=== PATIENT | female | born 1995 | race Caucasian/White ===

== ENCOUNTER 2017-08-11 00:24 | Emergency (ER) | payer MEDICAID ==
[~2017-08-11] VITALS: Ht 160 cm; Wt 81.0 kg
[2017-08-11 02:35] VITALS: BP 128/77
== END 2017-08-11 04:00 | disposition home or self-care (01) ==
LOC: ER 00:24
DX: T16.2XXA Foreign body in left ear, initial encounter (principal); X58.XXXA Exposure to other specified factors, initial encounter; Y93.89 Activity, other specified; Y92.89 Other specified places as the place of occurrence of the external cause; R03.0 Elevated blood-pressure reading, without diagnosis of hypertension
CPT/HCPCS: 69200; 99284

== ENCOUNTER 2021-09-04 05:15 | Emergency (ER) | payer MEDICAID ==
[~2021-09-04] VITALS: Ht 160 cm; Wt 94.0 kg
[2021-09-04] MEDS ORDERED: ONDANSETRON HCL 4MG/2ML INJ IV STA (05:37)
[2021-09-04] MEDS ORDERED: KETOROLAC 30MG/ML VIAL IV STA (05:37)
[2021-09-04] MEDS ORDERED: SODIUM CHLORIDE 0.9% 1,000 ML IV ONE (05:45)
[2021-09-04 06:21] LABS: CLARITY URINE CLEAR (CLEAR); COLOR URINE YELLOW (YELLOW); KETONES URINE TRACE (NEGATIVE); LEUKOCYTE ESTERASE URINE NEGATIVE (NEGATIVE); NITRITE URINE NEGATIVE (NEGATIVE); OCCULT BLOOD URINE NEGATIVE (NEGATIVE); PROTEIN URINE TRACE (NEGATIVE); SPECIFIC GRAVITY URINE 1.024 (1.005-1.030); UROBILINOGEN URINE 0.2 E.U./dL (0.2-1.0)
[2021-09-04 06:25] LABS: CHLORIDE 102 mEq/L (98-107)
[2021-09-04 06:26] LABS: PROTHROMBIN TIME 10.4 sec (9.6-11.0)
[2021-09-04 06:40] LABS: HCG SCREEN NEGATIVE
[2021-09-04 07:02] LABS: BASOPHILS % 0.2 % (0.0-2.0); EOSINOPHILS % 0.1 % (0.0-5.0); HEMATOCRIT. 39.6 % (36.0-48.0); HEMOGLOBIN. 13.2 g/dL (12.0-16.0); MEAN CORPUSCULAR HEMOGLOBIN 28.1 pg (28.0-32.0); MEAN CORPUSCULAR VOLUME 84.3 fL (81.0-99.0); MEAN PLATELET VOLUME 9.9 fl (7.4-10.4); MONOCYTES % 3.2 % (2.0-8.0); NEUTROPHILS % 88.5 % (40.0-76.0); PLATELET 327 x1000/uL (130-400); RED CELL DISTRIBUTION WIDTH 13.9 % (11.6-14.6)
[2021-09-04] MEDS ORDERED: TOPUD PO (07:17)
[2021-09-04] MEDS ORDERED: ONDA4TAB5 PO (07:17)
[2021-09-04 07:29] VITALS: BP 123/81
== END 2021-09-04 07:20 | disposition home or self-care (01) ==
LOC: ER 05:15
DX: K52.9 Noninfective gastroenteritis and colitis, unspecified (principal)
CPT/HCPCS: 36415; 80053; 81003; 81025; 83690; 84703; 85025; 85610; 93005; 96361; 96374; 96375; 99284; J1885; J2405; J7030